=== PATIENT | female | born 1940 | race Caucasian/White ===

== ENCOUNTER 2021-08-30 14:34 | Emergency (ER) | payer OTHER, MEDICARE ==
[2021-08-30 15:37] VITALS: BP 129/77; PULSE 77; TEMP 98; BMI 28.3
== END 2021-08-30 20:24 | disposition home or self-care (01) ==
LOC: JERFT 14:34
DX: S20.222A Contusion of left back wall of thorax, initial encounter (principal); W19.XXXA Unspecified fall, initial encounter
CPT/HCPCS: 71111-TC-FY; 99283-25